=== PATIENT | female | born 1990 | race African-American/Black ===

== ENCOUNTER 2024-11-28 10:39 | Emergency (ER) | payer OTHER, SELFPAY ==
--- NOTE | ~2024-11-28 | US_ITS ---
EXAMINATION: US OBSTETRICAL ULTRASOUND CLINICAL INFORMATION: , spotting and cramping COMPARISON: None available. LMP: 09/24/2024. Gestational age by maternal dates is weeks 2 days. Estimated date of delivery by maternal dates is 525. TECHNIQUE: Transabdominal and transvaginal imaging of pelvis is performed FINDINGS: There is twin intrauterine gestational sac with twin embryo/fetus, and cardiac activity. There is no significant subchorionic hemorrhage or hematoma. Baby A: Baby A lies close to the cervix with a crown-rump length of 0.64 cm corresponding to 6 weeks and 4 days. heart rate is 115 bpm. Baby B: BP lies further away from cervix with a crown-rump length of 0.53 cm and corresponding to 6 weeks 3 days. heart beat measures 1 1 7 bpm. There is visualization dual yolk sac. MATERNAL ADNEXA: The right maternal ovary measures 4.8 x 2.1 x 2.8 cm. There are 2 anechoic corpus luteal cyst measuring 1.8 x 1.4 x 1.6 cm and 1.7 x 1.4 x 1.6 cm. The left maternal ovary is not visualized. There is no significant maternal adnexal mass. No maternal pelvic ascites. US/US OB <= 14 wk fetus add gest IMPRESSION: 1. Twin . Live fetuses and yolk sac seen.. 2. Baby A measures 6 weeks and 4 days with a heart of 115 bpm. 3. Baby B measures 6 weeks and 3 days with a heart rate of 117 bpm. 4. No adnexal mass seen. Electronically signed by: Jitendra Rodriguez MD 11/28/2024 02:36 PM [facility] [place] [place]
--- NOTE | ~2024-11-28 | US_ITS ---
EXAMINATION: US OBSTETRICAL ULTRASOUND CLINICAL INFORMATION: , spotting and cramping COMPARISON: None available. LMP: 09/24/2024. Gestational age by maternal dates is weeks 2 days. Estimated date of delivery by maternal dates is 525. TECHNIQUE: Transabdominal and transvaginal imaging of pelvis is performed FINDINGS: There is twin intrauterine gestational sac with twin embryo/fetus, and cardiac activity. There is no significant subchorionic hemorrhage or hematoma. Baby A: Baby A lies close to the cervix with a crown-rump length of 0.64 cm corresponding to 6 weeks and 4 days. heart rate is 115 bpm. Baby B: BP lies further away from cervix with a crown-rump length of 0.53 cm and corresponding to 6 weeks 3 days. heart beat measures 1 1 7 bpm. There is visualization dual yolk sac. MATERNAL ADNEXA: The right maternal ovary measures 4.8 x 2.1 x 2.8 cm. There are 2 anechoic corpus luteal cyst measuring 1.8 x 1.4 x 1.6 cm and 1.7 x 1.4 x 1.6 cm. The left maternal ovary is not visualized. There is no significant maternal adnexal mass. No maternal pelvic ascites. US/US OB transvaginal IMPRESSION: 1. Twin . Live fetuses and yolk sac seen.. 2. Baby A measures 6 weeks and 4 days with a heart of 115 bpm. 3. Baby B measures 6 weeks and 3 days with a heart rate of 117 bpm. 4. No adnexal mass seen. Electronically signed by: Jitendra Rodriguez MD 11/28/2024 02:36 PM [facility] [place]
--- NOTE | ~2024-11-28 | US_ITS ---
EXAMINATION: US OBSTETRICAL ULTRASOUND CLINICAL INFORMATION: , spotting and cramping COMPARISON: None available. LMP: 09/24/2024. Gestational age by maternal dates is weeks 2 days. Estimated date of delivery by maternal dates is 525. TECHNIQUE: Transabdominal and transvaginal imaging of pelvis is performed FINDINGS: There is twin intrauterine gestational sac with twin embryo/fetus, and cardiac activity. There is no significant subchorionic hemorrhage or hematoma. Baby A: Baby A lies close to the cervix with a crown-rump length of 0.64 cm corresponding to 6 weeks and 4 days. heart rate is 115 bpm. Baby B: BP lies further away from cervix with a crown-rump length of 0.53 cm and corresponding to 6 weeks 3 days. heart beat measures 1 1 7 bpm. There is visualization dual yolk sac. MATERNAL ADNEXA: The right maternal ovary measures 4.8 x 2.1 x 2.8 cm. There are 2 anechoic corpus luteal cyst measuring 1.8 x 1.4 x 1.6 cm and 1.7 x 1.4 x 1.6 cm. The left maternal ovary is not visualized. There is no significant maternal adnexal mass. No maternal pelvic ascites. US/US OB pelvic and transvaginal IMPRESSION: 1. Twin . Live fetuses and yolk sac seen.. 2. Baby A measures 6 weeks and 4 days with a heart of 115 bpm. 3. Baby B measures 6 weeks and 3 days with a heart rate of 117 bpm. 4. No adnexal mass seen. Electronically signed by: Jitendra Rodriguez MD 11/28/2024 02:36 PM [facility]
[2024-11-28 10:56] VITALS: BP 137/80; PULSE 70; RESP 18; TEMP 36.7; O2SAT 100; BMI 26.6
--- NOTE | 2024-11-28 10:58 | ECG_ITS ---
Test Reason : N/V Blood Pressure : / mmHG Vent. Rate : 066 BPM Atrial Rate : 441 BPM P-R Int : 104 ms QRS Dur : 084 ms QT Int : 386 ms P-R-T Axes : 021 045 035 degrees QTc Int : 404 ms Poor data quality Possible Normal sinus rhythm Otherwise normal ECG No previous ECGs available Referred By: Generic ED Physician Electronically Signed By:MERLENE BALTAZAR MD
[2024-11-28 11:14] LABS: MANUAL DIFF FLAG NO
[2024-11-28 11:17] LABS: Basophils Percent Auto 0.3 % (0-2); Eosinophils Percent Auto 0.3 % (0-4); Hematocrit 40.5 % (37.0-47.0); Hemoglobin 14.9 g/dl (12.0-16.0); Imm Gran Abs Auto 0.02 X10*3/uL (0.00-0.03); Imm Gran Pct Auto 0.3 % (0.0-0.4); Lymphocytes Absolute Auto 1.4 X10*3/uL (1.2-4.9); Lymphocytes Percent Auto 17.7 % (20-40); Mean Corpuscular HGB Conc 36.8 g/dl (31.0-35.0); Mean Corpuscular Hemoglobin 31.1 pg (27.0-33.0); Mean Corpuscular Volume 84.6 fL (80.0-98.0); Mean Platelet Volume 8.5 fL (9.4-12.3); Monocytes Absolute Auto 0.5 X10*3/uL (0.1-1.2); Monocytes Percent Auto 6.2 % (2-11); Neutrophils Absolute Auto 5.9 x10*3/uL (2.0-8.3); Neutrophils Percent Auto 75.2 % (45-73); Platelet Count 281 X10*3/uL (160-400); Red Blood Count 4.79 X10*6/uL (4.20-5.50); Red Cell Distribution Width 11.7 % (11.0-16.0); White Blood Count 7.9 X10*3/uL (4.8-10.8)
[2024-11-28 11:37] LABS: Troponin-I High Sensitivity < 2.7 ng/L (<3.5-17.0)
[2024-11-28 11:39] LABS: Alanine Aminotransferase 14 U/L (0-31); Albumin Level 4.7 g/dL (3.5-5.0); Alkaline Phosphatase 47 U/L (39-117); Anion Gap 14 (12-20); Aspartate Amino Transferase 23 U/L (5-31); Bilirubin Total 0.6 mg/dL (0.0-1.0); Blood Urea Nitrogen 11 mg/dL (9-16); Calcium 9.2 mg/dL (8.4-10.2); Carbon Dioxide 27 mmol/L (22-29); Chloride 100 mmol/L (96-108); Creatinine Clr Calc Pharmacy 96.5; Estimated Glomerular Filt Rate > 60; Glucose Random 118 mg/dL (60-115); Magnesium 1.8 mg/dL (1.6-2.6); Potassium 2.9 mmol/L (3.3-5.1); Sodium 138 mmol/L (135-145); Total Protein 7.6 g/dL (6.5-8.0)
--- NOTE | 2024-11-28 11:54 | ED.GENADULT ---
HPI - General Adult General Chief complaint: Nausea/Vomiting/Diarrhea Stated complaint: preg+ , vomiting, bleeding Time Seen by Provider: 11/28/24 11:53 History of Present Illness ED Provider: Ni CASILLAS narrative: The patient is a 34-year-old woman who says that her last menstrual period was in August. She says that she missed a period after that. Several days ago she also developed some nausea. Ultimately she suspected she might be . She took a home test 3 days ago that was positive. She comes to the emergency room today because she has had a great deal of vomiting over the last few days. No fever, sweats, chills. No silvano vaginal bleeding but she has had some vaginal spotting. Patient has 2 children. She also has a history of an ectopic . The patient is uncertain as to whether she plans on continuing this . Related Data Previous Rx's ?Medication ?Instructions ?Recorded metoclopramide HCl 10 mg tablet 10 mg PO Q6H PRN nausea and 11/28/24 vomiting #12 tabs Allergies Allergy/AdvReac Type Severity Reaction Status Date / Time No Known Allergies Allergy Verified 11/28/24 10:57 Review of Systems Review of Systems: Yes all other systems are reviewed and are negative PMFSH Social History Social History Smoked in Last 30 Days: No Substance Use Type: Marijuana Substance Use Frequency: Occasionally Advance Directives: No Do you have a plan to hurt others: No Plan Physical Exam ED Vital Signs: Vital Signs - 24 hr 11/28/24 10:56 11/28/24 14:27 11/28/24 15:43 Temperature 98.0 F 98.0 F Pulse Rate 70 70 70 Respiratory Rate 18 16 16 Blood Pressure 137/80 105/71 105/71 Pulse Oximetry 100 99 99 Oxygen Delivery Method Room Air Room Air Room Air BMI result Body Mass Index 26.6 Const Other: The patient is awake and alert. She seemed nauseated and was vomiting a great deal. HENMT Other: Face was symmetrical. Mucous membranes not obviously dry. Eyes General: appearance normal, both eyes and all related structures Neck Neck: Yes full ROM Resp Effort & Inspection: normal respiratory effort Auscultation: clear to auscultation bilaterally Cardio Rate: regular rate Rhythm: regular rhythm Heart sounds: S1 normal heart sound present and S2 normal heart sound present GI Other: The abdomen was soft and nontender Skin Other: Skin was dry and unremarkable Neuro Other: The patient looks fatigued but otherwise had a normal mental status. Cranial nerves are intact. She moves her extremities normally and appropriately. Extrem Other: No peripheral edema. Medications Administered Discontinued Medications Generic Name Dose Route Start Last Admin Trade Name Chata PRN Reason Stop Dose Admin Diphenhydramine HCl 25 mg 11/28/24 11:58 11/28/24 12:03 Diphenhydramine Hcl 50 Mg/Ml Vial IVPUSH 11/28/24 11:59 25 mg ONCE ONE Administration Lactated Ringer's 1,000 mls @ 999 mls/hr 11/28/24 12:15 11/28/24 14:47 Lr IV 11/28/24 13:15 Infused .Q1H1M J LUIS Infusion Metoclopramide HCl 10 mg 11/28/24 11:58 11/28/24 12:03 Metoclopramide Hcl 10 Mg/2 Ml Vial IVPUSH 11/28/24 11:59 10 mg ONCE ONE Administration Potassium Chloride 20 meq 11/28/24 15:01 11/28/24 15:11 Potassium Chloride Er 20 Meq Tab.Er.Prt PO 11/28/24 15:02 20 meq ONCE ONE Administration Medical Decision Making Medical Decision Making MDM Narrative: The patient is a 34-year-old female who was recently found to be . She presents with a great deal of vomiting. She also has some abdominal cramping and some vaginal spotting. She has not yet had any obstetrical evaluation for this . She is not certain that she wants to continue this to term. The patient was treated symptomatically with metoclopramide, diphenhydramine, and IV fluids. An ultrasound shows a twin intrauterine with 2 fetuses measuring 6.5 weeks. The patient's blood type is A positive. The patient felt much better with treatment. She felt well enough for discharge. [facility] . She is also given the information for [facility]. Lab Data 11/28/24 11:04 11/28/24 11:04 Labs: Lab Results 11/28/24 11/28/24 11/28/24 Range/Units 11:04 13:13 14:11 WBC 7.9 (4.8-10.8) X10*3/uL RBC 4.79 (4.20-5.50) X10*6/uL Hgb 14.9 (12.0-16.0) g/dl Hct 40.5 (37.0-47.0) % MCV 84.6 (80.0-98.0) fL MCH 31.1 (27.0-33.0) pg MCHC 36.8 H (31.0-35.0) g/dl RDW 11.7 (11.0-16.0) % Plt Count 281 (160-400) X10*3/uL MPV 8.5 L (9.4-12.3) fL Immature Gran % (Auto) 0.3 (0.0-0.4) % Neut % (Auto) 75.2 H (45-73) % Lymph % (Auto) 17.7 L (20-40) % [place] % (Auto) 6.2 (2-11) % Eos % (Auto) 0.3 (0-4) % Baso % (Auto) 0.3 (0-2) % Lymph # (Auto) 1.4 (1.2-4.9) X10*3/uL [place] # (Auto) 0.5 (0.1-1.2) X10*3/uL Eos # (Auto) 0.0 (0.0-0.4) X10*3/uL Baso # (Auto) 0.0 (0.0-0.2) X10*3/uL Abs Immat Gran (auto) 0.02 (0.00-0.03) X10*3/uL Absolute Neuts (auto) 5.9 (2.0-8.3) x10*3/uL Absolute Nucleated RBC 0.000 (0.0-0.012) X10*3/uL Nucleated RBC % (auto) 0.0 (0.0-0.2) /100WBC Sodium 138 (135-145) mmol/L Potassium 2.9 L* (3.3-5.1) mmol/L Chloride 100 (96-108) mmol/L Carbon Dioxide 27 (22-29) mmol/L Anion Gap 14 (12-20) BUN 11 (9-16) mg/dL Creatinine 0.79 (0.5-1.4) mg/dL Estim Creat Clear Calc 96.5 Estimated GFR > 60 Random Glucose 118 H (60-115) mg/dL Calcium 9.2 (8.4-10.2) mg/dL Magnesium 1.8 (1.6-2.6) mg/dL Total Bilirubin 0.6 (0.0-1.0) mg/dL AST 23 (5-31) U/L ALT 14 (0-31) U/L Alkaline Phosphatase 47 (39-117) U/L Troponin I High Sens < 2.7 (<3.5-17.0) ng/L Total Protein 7.6 (6.5-8.0) g/dL Albumin 4.7 (3.5-5.0) g/dL Beta HCG, Quant 625250 mIU/mL Urine Color Dark Yellow Urine Appearance Cloudy Urine pH 6.0 (5.0-9.0) Ur Specific [place] >= 1.030 H (1.005-1.025) Urine Protein 30 (1+) H (Neg-Trace) mg/dL Urine Glucose (UA) Negative (Negative) mg/dL Urine Ketones >=160 (Negative) mg/dL Urine Blood Trace H (Negative) Urine Nitrite Negative (Negative) Ur Leukocyte Esterase Negative (Negative) Urine RBC 0-2 (0-2) /HPF Urine WBC 0-5 (0-5) /HPF Ur Squamous Epith Cells 6-10 (0-2) /HPF Urine Bacteria Trace (None Seen) Hyaline Casts 0-2 (0-2) /LPF Influenza Type A (PCR) NEGATIVE (Negative) Influenza Type B (PCR) NEGATIVE (Negative) RSV RNA Qual (PCR) NEGATIVE (Negative) SARS-CoV-2 RNA (RT-PCR) NEGATIVE (Negative) Blood Type A Positive Discharge Plan Discharge Clinical Impression: Hyperemesis gravidarum, First trimester Patient Disposition: Home, Self-Care Instructions: Hyperemesis Gravidarum (ED) Additional Instructions: You seem to be about 6 weeks into this . Your blood type is A positive. I have sent a prescription for the medication metoclopramide (also known as Reglan) to your pharmacy which you may use as needed for nausea. Benadryl can also be helpful although it is sedating. You may purchase this [id number]. [facility] contact [facility] if you think you will be choosing to not continue this . Alternatively you can contact the [facility] [employer] office at this hospital, [facility]. Return to the emergency room if significantly worse. Prescriptions: New metoclopramide HCl 10 mg tablet 10 mg PO Q6H PRN (Reason: nausea and vomiting) Qty: 12 0RF Referrals: [facility] [Provider Group] [facility] [Outside] Interventions: ED Discharge Assessment Last Done: 11/28/24 15:43 Discharge Date/Time: 11/28/24 15:44 Print Language: Turkish
[2024-11-28 12:00] LABS: HCG Quantitative 189365 mIU/mL
[2024-11-28] MEDS: Lactated Ringers 1,000 ML 999 ML IV (12:03)
[2024-11-28] MEDS: Metoclopramide HCl 10 MG/2 ML VIAL IVPUSH (12:03)
[2024-11-28] MEDS: diphenhydrAMINE HCL 50 MG/ML VIAL 25 MG IVPUSH (12:03)
[2024-11-28 12:20] LABS: Influenza A PCR NEGATIVE (Negative); Influenza B PCR NEGATIVE (Negative); Resp Syncy Virus RNA Qual PCR NEGATIVE (Negative); SARS COV2 PCR INHOUSE NEGATIVE (Negative)
[2024-11-28 13:22] LABS: Appearance Urine Cloudy; Color Urine Dark Yellow; Glucose Urine UA Negative (Negative); Leukocyte Esterase Urine Negative (Negative); Nitrite Urine Negative (Negative); Specific Gravity - Urine >= 1.030 (1.005-1.025); UMIC TRIGGER UACC YES; Urine Blood Trace (Negative); Urine Ketones >=160 mg/dL (Negative); Urine Protein 30 (1+) mg/dL (Neg-Trace)
[2024-11-28 13:34] LABS: Bacteria Urine Trace (None Seen); Hyaline Casts Urine 0-2 /LPF (0-2); RBC Urine 0-2 /HPF (0-2); WBC Urine 0-5 /HPF (0-5)
[2024-11-28 14:27] VITALS: BP 105/71; PULSE 70; RESP 16; O2SAT 99
[2024-11-28] MEDS: Potassium Chloride ER 20 MEQ TAB.ER.PRT PO (15:11)
[2024-11-28 15:43] VITALS: BP 105/71; PULSE 70; RESP 16; TEMP 36.7; O2SAT 99
== END 2024-11-28 15:44 | disposition home or self-care (01) ==
PROVIDERS: Emergency Provider Emergency Medicine
DX: O21.0 Mild hyperemesis gravidarum (principal); Z3A.01 Less than 8 weeks gestation of pregnancy; Z03.818 Encounter for observation for suspected exposure to other biological agents ruled out; Z79.899 Other long term (current) drug therapy
CPT/HCPCS: 0241U; 76801; 76802; 76817; 80053; 81001; 83735; 84484; 84702; 85025; 86900; 86901; 93005; 96361; 96374; 96375; 99285; J1200; J2765; J7120

== ENCOUNTER → 2024-11-28 10:58 | Outpatient (BNV) | payer OTHER, SELFPAY | PROVIDERS: Emergency Provider Emergency Medicine; Visit Provider Internal Medicine Cardiovascular Disease | DX: R11.2 Nausea with vomiting, unspecified (principal) | CPT/HCPCS: 93010 ==

== ENCOUNTER → 2024-11-28 13:39 | Outpatient (BNV) | payer OTHER, SELFPAY | PROVIDERS: Emergency Provider Emergency Medicine; Visit Provider Radiology Diagnostic Radiology | DX: O26.851 Spotting complicating pregnancy, first trimester (principal); Z3A.01 Less than 8 weeks gestation of pregnancy | CPT/HCPCS: 76801; 76802; 76817 ==

== ENCOUNTER 2024-11-30 04:07 | Emergency (ER) | payer OTHER, SELFPAY ==
--- NOTE | 2024-11-30 | ECG_ITS ---
Test Reason : CHEST PAIN Blood Pressure : / mmHG Vent. Rate : 055 BPM Atrial Rate : 055 BPM P-R Int : 166 ms QRS Dur : 084 ms QT Int : 452 ms P-R-T Axes : 056 040 040 degrees QTc Int : 432 ms Sinus bradycardia Otherwise normal ECG When compared with ECG of 28-NOV-2024 11:21, No significant change was found Referred By: Generic ED Physician Electronically Signed By:MERLENE BALTAZAR MD
[2024-11-30 04:11] VITALS: BP 114/53; PULSE 55; RESP 20; TEMP 36.4; O2SAT 99; BMI 25.5
[2024-11-30 04:28] LABS: Basophils Percent Auto 0.1 % (0-2); Hematocrit 37.7 % (37.0-47.0); Hemoglobin 14.1 g/dl (12.0-16.0); Imm Gran Abs Auto 0.04 X10*3/uL (0.00-0.03); Imm Gran Pct Auto 0.3 % (0.0-0.4); Lymphocytes Absolute Auto 1.5 X10*3/uL (1.2-4.9); Lymphocytes Percent Auto 10.9 % (20-40); MANUAL DIFF FLAG NO; Mean Corpuscular HGB Conc 37.4 g/dl (31.0-35.0); Mean Corpuscular Hemoglobin 30.9 pg (27.0-33.0); Mean Corpuscular Volume 82.7 fL (80.0-98.0); Mean Platelet Volume 8.5 fL (9.4-12.3); Monocytes Absolute Auto 0.8 X10*3/uL (0.1-1.2); Monocytes Percent Auto 5.7 % (2-11); Neutrophils Absolute Auto 11.4 x10*3/uL (2.0-8.3); Platelet Count 306 X10*3/uL (160-400); Red Blood Count 4.56 X10*6/uL (4.20-5.50); Red Cell Distribution Width 11.9 % (11.0-16.0); White Blood Count 13.7 X10*3/uL (4.8-10.8)
[2024-11-30 04:53] LABS: Alanine Aminotransferase 12 U/L (0-31); Albumin Level 4.7 g/dL (3.5-5.0); Alkaline Phosphatase 47 U/L (39-117); Anion Gap 19 (12-20); Aspartate Amino Transferase 21 U/L (5-31); Bilirubin Total 0.6 mg/dL (0.0-1.0); Blood Urea Nitrogen 12 mg/dL (9-16); Calcium 9.7 mg/dL (8.4-10.2); Carbon Dioxide 24 mmol/L (22-29); Chloride 100 mmol/L (96-108); Creatinine Clr Calc Pharmacy 111.6; Estimated Glomerular Filt Rate > 60; Glucose Random 125 mg/dL (60-115); Lipase 15 U/L (8-78); Sodium 140 mmol/L (135-145); Total Protein 7.5 g/dL (6.5-8.0)
[2024-11-30 04:58] LABS: Troponin-I High Sensitivity < 2.7 ng/L (<3.5-17.0)
--- NOTE | 2024-11-30 05:04 | ED_ITS ---
HPI - Nausea/Vomiting/Diarrhea General Chief complaint: Nausea/Vomiting/Diarrhea Stated complaint: , constant vomiting Time Seen by Provider: 11/30/24 05:03 Source: patient Mode of arrival: ambulatory Limitations: no limitations History of Present Illness ED Provider: HPI Narrative: Patient with twin 6 weeks 5 days comes here for increased vomiting for last 5 days was seen here on 11/28 had ultrasound done which showed twin patient went home on Reglan without much response Related Data Previous Rx's ?Medication ?Instructions ?Recorded metoclopramide HCl 10 mg tablet 10 mg PO Q6H PRN nausea and 11/28/24 vomiting #12 tabs Allergies Allergy/AdvReac Type Severity Reaction Status Date / Time No Known Allergies Allergy Verified 11/30/24 04:13 Review of Systems 2 Review of Systems: Yes all other systems are reviewed and are negative [facility] Social History Social History Smoked in Last 30 Days: No Use of substances other than those prescribed or required for medical reasons: No Substance Use Type: Marijuana Advance Directives: No Advance Directives Information Provided: Yes Do you have a plan to hurt others: No Plan Patient : Yes Physical Exam 2 Vital Signs: Vital Signs: Last Vital Signs Temp 98.5 F 11/30/24 06:32 Pulse 70 11/30/24 06:32 Resp 20 11/30/24 06:32 BP 114/56 L 11/30/24 06:32 Pulse Ox 100 11/30/24 06:32 O2 Del Method Room Air 11/30/24 06:32 BMI result Body Mass Index 25.5 Appearance: Alert. Oriented X3. No acute distress. Eyes: No pallor or icterus ENT: Pharynx normal. Oral Mucosa dry Neck: Normal inspection. Neck supple. CVS: Normal heart rate and rhythm. Pulses normal. Respiratory: No respiratory distress. Equal air entry bilateral, no wheezing/rales/rhonchi Abdomen: Soft and nontender. Bowel sounds are present, no mass palpable, no CVA tenderness Skin: Skin warm and dry. Normal skin color. Normal skin turgor. Extremities: No lower extremity edema. No calf tenderness Neuro: Oriented X 3. No motor deficit. Medications Administered Discontinued Medications Generic Name Dose Route Start Last Admin Trade Name Freq PRN Reason Stop Dose Admin Potassium Chloride 10 meq in 100 mls @ 100 mls/hr 11/30/24 05:15 11/30/24 06:01 Potassium Chloride/H20 IV 11/30/24 07:14 100 mls/hr Q1H J LUIS Administration Sodium Chloride 1,000 mls @ 999 mls/hr 11/30/24 05:06 11/30/24 05:53 Ns IV 11/30/24 06:06 999 mls/hr .Q1H1M ONE Administration Sodium Chloride 1,000 mls @ 999 mls/hr 11/30/24 05:34 11/30/24 05:53 Ns IV 11/30/24 06:34 999 mls/hr .Q1H1M ONE Administration Ondansetron HCl 4 mg 11/30/24 05:07 11/30/24 05:53 Ondansetron Hcl 4 Mg/2 Ml Vial IVPUSH 11/30/24 05:08 4 mg ONCE ONE Administration Medical Decision Making Medical Decision Making [facility] Narrative: Patient with hyperemesis gravidarum with twin with hypo kalemia will potassium and IV fluids UA was negative except for ketones yesterday Patient is signed out to Dr. Juarez pending disposition Lab Data [facility] Lab Attestation statement: I reviewed the patient's lab results. 11/30/24 04:22 11/30/24 04:22 Labs: Lab Results 11/30/24 Range/Units 04:22 WBC 13.7 H (4.8-10.8) X10*3/uL RBC 4.56 (4.20-5.50) X10*6/uL Hgb 14.1 (12.0-16.0) g/dl Hct 37.7 (37.0-47.0) % MCV 82.7 (80.0-98.0) fL MCH 30.9 (27.0-33.0) pg MCHC 37.4 H (31.0-35.0) g/dl RDW 11.9 (11.0-16.0) % Plt Count 306 (160-400) X10*3/uL MPV 8.5 L (9.4-12.3) fL Immature Gran % (Auto) 0.3 (0.0-0.4) % Neut % (Auto) 83.0 H (45-73) % Lymph % (Auto) 10.9 L (20-40) % [place] % (Auto) 5.7 (2-11) % Eos % (Auto) 0.0 (0-4) % Baso % (Auto) 0.1 (0-2) % Lymph # (Auto) 1.5 (1.2-4.9) X10*3/uL [place] # (Auto) 0.8 (0.1-1.2) X10*3/uL Eos # (Auto) 0.0 (0.0-0.4) X10*3/uL Baso # (Auto) 0.0 (0.0-0.2) X10*3/uL Abs Immat Gran (auto) 0.04 H (0.00-0.03) X10*3/uL Absolute Neuts (auto) 11.4 H (2.0-8.3) x10*3/uL Absolute Nucleated RBC 0.000 (0.0-0.012) X10*3/uL Nucleated RBC % (auto) 0.0 (0.0-0.2) /100WBC Sodium 140 (135-145) mmol/L Potassium 2.7 L* (3.3-5.1) mmol/L Chloride 100 (96-108) mmol/L Carbon Dioxide 24 (22-29) mmol/L Anion Gap 19 (12-20) BUN 12 (9-16) mg/dL Creatinine 0.67 (0.5-1.4) mg/dL Estim Creat Clear Calc 111.6 Estimated GFR > 60 Random Glucose 125 H (60-115) mg/dL Calcium 9.7 (8.4-10.2) mg/dL Magnesium 1.8 (1.6-2.6) mg/dL Total Bilirubin 0.6 (0.0-1.0) mg/dL AST 21 (5-31) U/L ALT 12 (0-31) U/L Alkaline Phosphatase 47 (39-117) U/L Troponin I High Sens < 2.7 (<3.5-17.0) ng/L Total Protein 7.5 (6.5-8.0) g/dL Albumin 4.7 (3.5-5.0) g/dL Lipase 15 (8-78) U/L Beta HCG, Quant > [id number] mIU/mL Influenza Type A (PCR) NEGATIVE (Negative) Influenza Type B (PCR) NEGATIVE (Negative) RSV RNA Qual (PCR) NEGATIVE (Negative) SARS-CoV-2 RNA (RT-PCR) NEGATIVE (Negative) Independent Interpretation I performed an independent interpretation of an: EKG Interpretation: Sinus bradycardia heart rate of 55 beats per minute normal interval normal axis no acute STT wave changes no acute ischemia Discharge Plan Discharge Clinical Impression: Hyperemesis gravidarum, Acute hypokalemia Patient Disposition: Still a Patient Prescriptions: No Action metoclopramide HCl 10 mg tablet 10 mg PO Q6H PRN (Reason: nausea and vomiting) Qty: 12 0RF Print Language: Faroese
[2024-11-30 05:05] LABS: Influenza A PCR NEGATIVE (Negative); Influenza B PCR NEGATIVE (Negative); Resp Syncy Virus RNA Qual PCR NEGATIVE (Negative); SARS COV2 PCR INHOUSE NEGATIVE (Negative)
[2024-11-30 05:28] LABS: HCG Quantitative > 225000 mIU/mL
[2024-11-30] MEDS: 0.9 % Sodium Chloride 1,000 ML 999 ML IV ×3 (05:53→09:52)
[2024-11-30] MEDS: ondansetron HCL 4 MG/2 ML VIAL IVPUSH (05:53)
[2024-11-30] MEDS: Potassium Chloride/H20 10 MEQ/100 ML PIGGYBACK 100 MEQ IV ×3 (06:01→09:38)
[2024-11-30 06:19] LABS: Potassium 2.7 mmol/L (3.3-5.1)
[2024-11-30 06:32] VITALS: BP 114/56; PULSE 70; RESP 20; TEMP 36.9; O2SAT 100
[2024-11-30 06:54] LABS: Magnesium 1.8 mg/dL (1.6-2.6)
[2024-11-30] MEDS: Metoclopramide HCl 10 MG/2 ML VIAL IVPUSH (09:18)
[2024-11-30 09:31] VITALS: BP 112/66; PULSE 68; RESP 16; TEMP 36.8; O2SAT 99
[2024-11-30] MEDS: Potassium Chloride Packet 20 MEQ PACKET 40 MEQ PO (10:13)
[2024-11-30 11:09] VITALS: BP 129/89; PULSE 89; RESP 18; TEMP 36.4; O2SAT 99
--- NOTE | 2024-11-30 11:10 | PC.NURSE ---
Pt's IVF's and IV KCL completed; pt tolerating PO intake with no N/V at this time; vss
[2024-11-30 11:37] VITALS: BP 129/89; PULSE 89; RESP 18; TEMP 36.4; O2SAT 99
== END 2024-11-30 11:39 | disposition home or self-care (01) ==
PROVIDERS: Internal Medicine; Emergency Provider Emergency Medicine; PCP Nurse Practitioner
DX: O21.1 Hyperemesis gravidarum with metabolic disturbance (principal); Z3A.01 Less than 8 weeks gestation of pregnancy; Z03.818 Encounter for observation for suspected exposure to other biological agents ruled out
CPT/HCPCS: 0241U; 36415; 80053; 83690; 83735; 84484; 84702; 85025; 93005; 96361; 96365; 96366; 96375; 99285; J2405; J2765; J3480

== ENCOUNTER → 2024-11-30 04:18 | Outpatient (BNV) | payer OTHER, SELFPAY | PROVIDERS: Emergency Provider Emergency Medicine; PCP Nurse Practitioner; Visit Provider Internal Medicine Cardiovascular Disease | DX: R07.9 Chest pain, unspecified (principal) | CPT/HCPCS: 93010 ==

== ENCOUNTER 2024-11-30 20:27 | Emergency (ER) | payer OTHER, SELFPAY ==
[2024-11-30 20:29] VITALS: BP 136/65; PULSE 60; RESP 18; TEMP 36.3; O2SAT 100; BMI 26.6
--- NOTE | 2024-11-30 20:30 | ED.NAVMDI ---
HPI - Nausea/Vomiting/Diarrhea General Chief complaint: General Medical Stated complaint: vomiting Time Seen by Provider: 11/30/24 22:26 History of Present Illness HPI Narrative: Patient is a 34-year-old female had an ultrasound done earlier yesterday it was positive for an intrauterine twin approximately 6 weeks old. Positive heart tone. Patient went home still complaining of nausea. Feels the symptoms got worse. Presented to the ED. no fever no chills. No vaginal bleeding. Patient from home. Related Data Previous Rx's ?Medication ?Instructions ?Recorded metoclopramide HCl 10 mg tablet 10 mg PO Q6H PRN nausea and 11/28/24 vomiting #12 tabs Allergies Allergy/AdvReac Type Severity Reaction Status Date / Time No Known Allergies Allergy Verified 11/30/24 20:31 Review of Systems Review of Systems: Positive nausea vomiting Yes all other systems are reviewed and are negative [facility] Past Medical History Attestation statement: The following information was validated with the patient. Social History Social History Smoked in Last 30 Days: No Use of substances other than those prescribed or required for medical reasons: No Substance Use Type: Marijuana Advance Directives: No Advance Directives Information Provided: No Patient : Yes Physical Exam Vital Signs: Vital Signs: Last Vital Signs Temp 98.9 F 11/30/24 22:39 Pulse 58 11/30/24 22:39 Resp 20 11/30/24 22:39 BP 136/69 11/30/24 22:39 Pulse Ox 100 11/30/24 22:39 O2 Del Method Room Air 11/30/24 22:39 BMI result Body Mass Index 26.6 Appearance: Alert. Oriented X3. No acute distress. Eyes: Pupils equal, round and reactive to light. ENT: Pharynx normal. Neck: Normal inspection. Neck supple. No lymph nodes noted. No crepitus CVS: Normal heart rate and rhythm. Pulses normal. Normal S1 and S2 Respiratory: No respiratory distress. Breath sounds normal. No Wheezing. No rales Abdomen: Soft and nontender. No rigidity. No distention. good BS x4 Skin: Skin warm and dry. Normal skin color. Normal skin turgor. Extremities: No lower extremity edema. Neurovascular intact to all extremities. No Lacerations. No Rash Neuro: Oriented X 3. No motor deficit. No sensory deficit. Moving all extermities. No slurred speech Course Course Course Narrative: This is a Rapid Medical Exam performed in triage by Sruthi Fernandez PA-C. Full HPI, ROS and PE to be performed by primary ED provider. 34yo F @6 weeks gestation w/twin presenting to the ED c/o sore throat / pain with swallowing, nausea, vomiting w/inability to tolerate PO & vaginal bleeding x days. denies vaginal d/c. currently has no OB, states she plans to [facility]. Patient was evaluated in our ED on 11/28 as well as earlier today PE: uncomfortable, in wheelchair Plan: Labs, UA Medications Administered Discontinued Medications Generic Name Dose Route Start Last Admin Trade Name Freq PRN Reason Stop Dose Admin Al Hydroxide/Mg Hydroxide 30 ml 11/30/24 23:08 11/30/24 23:37 Magnesium Hydrox/Alum Hydrox 30 Ml Oral.Susp PO 11/30/24 23:09 30 ml ONCE ONE Administration Sodium Chloride 1,000 mls @ 999 mls/hr 11/30/24 23:15 11/30/24 23:37 Ns IV 12/01/24 00:15 999 mls/hr .Q1H1M J LUIS Administration Sodium Chloride 1,000 mls @ 999 mls/hr 11/30/24 23:15 11/30/24 23:37 Ns IV 12/01/24 00:15 999 mls/hr .Q1H1M J LUIS Administration Ondansetron HCl 4 mg 11/30/24 23:07 11/30/24 23:37 Ondansetron Hcl 4 Mg/2 Ml Vial IVPUSH 11/30/24 23:08 4 mg ONCE ONE Administration Medical Decision Making Medical Decision Making [facility] Narrative: Patient given IV fluids in the emergency department. Risk and benefit of medication was discussed. Risk of dehydration also mention. Patient agrees to taking some nausea medication. A dose of Zofran was given. After IV fluid Zofran symptom improved. Patient was able to tolerate fluids. Previous ultrasound report was reviewed. It showed an intrauterine twin . She is currently in stable condition. Will discharge home Differential Diagnosis Differential Diagnoses: The differential diagnosis associated with the presentation includes Hyperemesis gravidarum, obstruction Admission/Observation Consideration of admission/observation: Escalation of care including admission/observation considered Lab Data [facility] Lab Attestation statement: I reviewed the patient's lab results. 11/30/24 20:48 11/30/24 20:48 Labs: Lab Results 11/30/24 Range/Units 20:48 WBC 10.3 (4.8-10.8) X10*3/uL RBC 4.01 L (4.20-5.50) X10*6/uL Hgb 12.3 (12.0-16.0) g/dl Hct 33.5 L (37.0-47.0) % MCV 83.5 (80.0-98.0) fL MCH 30.7 (27.0-33.0) pg MCHC 36.7 H (31.0-35.0) g/dl RDW 11.9 (11.0-16.0) % Plt Count 252 (160-400) X10*3/uL MPV 8.6 L (9.4-12.3) fL Immature Gran % (Auto) 0.3 (0.0-0.4) % Neut % (Auto) 77.0 H (45-73) % Lymph % (Auto) 16.2 L (20-40) % Ward % (Auto) 6.1 (2-11) % Eos % (Auto) 0.2 (0-4) % Baso % (Auto) 0.2 (0-2) % Lymph # (Auto) 1.7 (1.2-4.9) X10*3/uL Ward # (Auto) 0.6 (0.1-1.2) X10*3/uL Eos # (Auto) 0.0 (0.0-0.4) X10*3/uL Baso # (Auto) 0.0 (0.0-0.2) X10*3/uL Abs Immat Gran (auto) 0.03 (0.00-0.03) X10*3/uL Absolute Neuts (auto) 7.9 (2.0-8.3) x10*3/uL Absolute Nucleated RBC 0.000 (0.0-0.012) X10*3/uL Nucleated RBC % (auto) 0.0 (0.0-0.2) /100WBC Sodium 138 (135-145) mmol/L Potassium 3.0 L (3.3-5.1) mmol/L Chloride 104 (96-108) mmol/L Carbon Dioxide 24 (22-29) mmol/L Anion Gap 13 (12-20) BUN 9 (9-16) mg/dL Creatinine 0.57 (0.5-1.4) mg/dL Estim Creat Clear Calc 133.8 Estimated GFR > 60 Random Glucose 91 (60-115) mg/dL Calcium 8.5 D (8.4-10.2) mg/dL Magnesium 1.8 (1.6-2.6) mg/dL Total Bilirubin 0.8 (0.0-1.0) mg/dL Direct Bilirubin 0.3 (0.0-0.5) mg/dL AST 34 H (5-31) U/L ALT 19 (0-31) U/L Alkaline Phosphatase 39 (39-117) U/L Total Protein 6.2 L (6.5-8.0) g/dL Albumin 3.9 (3.5-5.0) g/dL Lipase 35 (8-78) U/L Beta HCG, Quant > 613490 mIU/mL S. pyogenes GrpA ABDI Negative (Negative) External Record Review Ultrasound report from earlier repeat Chronic Conditions with twins Social Determinants Patient?s care significantly limited by Social Determinants of Health including: Problems related to primary support group Discharge Plan Discharge Clinical Impression: Hyperemesis gravidarum Patient Disposition: Home, Self-Care Instructions: Hyperemesis Gravidarum (ED) Prescriptions: No Action metoclopramide HCl 10 mg tablet 10 mg PO Q6H PRN (Reason: nausea and vomiting) Qty: 12 0RF Referrals: Darwin Abrams MD [Physician] - 12/03/24 Print Language: Azeri
[2024-11-30 20:52] LABS: MANUAL DIFF FLAG NO
[2024-11-30 21:00] LABS: IDNOW Serial# 58CA691E
[2024-11-30 21:01] LABS: Strep A Nucleic Acid Negative (Negative)
[2024-11-30 21:14] LABS: Alanine Aminotransferase 19 U/L (0-31); Albumin Level 3.9 g/dL (3.5-5.0); Alkaline Phosphatase 39 U/L (39-117); Anion Gap 13 (12-20); Aspartate Amino Transferase 34 U/L (5-31); Bilirubin Direct 0.3 mg/dL (0.0-0.5); Bilirubin Total 0.8 mg/dL (0.0-1.0); Blood Urea Nitrogen 9 mg/dL (9-16); Calcium 8.5 mg/dL (8.4-10.2); Carbon Dioxide 24 mmol/L (22-29); Chloride 104 mmol/L (96-108); Creatinine Clr Calc Pharmacy 133.8; Estimated Glomerular Filt Rate > 60; Glucose Random 91 mg/dL (60-115); Lipase 35 U/L (8-78); Magnesium 1.8 mg/dL (1.6-2.6); Sodium 138 mmol/L (135-145); Total Protein 6.2 g/dL (6.5-8.0)
[2024-11-30 21:20] LABS: Basophils Percent Auto 0.2 % (0-2); Eosinophils Percent Auto 0.2 % (0-4); Hematocrit 33.5 % (37.0-47.0); Hemoglobin 12.3 g/dl (12.0-16.0); Imm Gran Abs Auto 0.03 X10*3/uL (0.00-0.03); Imm Gran Pct Auto 0.3 % (0.0-0.4); Lymphocytes Absolute Auto 1.7 X10*3/uL (1.2-4.9); Lymphocytes Percent Auto 16.2 % (20-40); Mean Corpuscular HGB Conc 36.7 g/dl (31.0-35.0); Mean Corpuscular Hemoglobin 30.7 pg (27.0-33.0); Mean Corpuscular Volume 83.5 fL (80.0-98.0); Mean Platelet Volume 8.6 fL (9.4-12.3); Monocytes Absolute Auto 0.6 X10*3/uL (0.1-1.2); Monocytes Percent Auto 6.1 % (2-11); Neutrophils Absolute Auto 7.9 x10*3/uL (2.0-8.3); Platelet Count 252 X10*3/uL (160-400); Red Blood Count 4.01 X10*6/uL (4.20-5.50); Red Cell Distribution Width 11.9 % (11.0-16.0); White Blood Count 10.3 X10*3/uL (4.8-10.8)
[2024-11-30 21:42] LABS: HCG Quantitative > 225000 mIU/mL
[2024-11-30 22:39] VITALS: BP 136/69; PULSE 58; RESP 20; TEMP 37.2; O2SAT 100
[2024-11-30] MEDS: ondansetron HCL 4 MG/2 ML VIAL IVPUSH (23:37)
[2024-11-30] MEDS: Magnesium Hydrox/Alum Hydrox 30 ML ORAL.SUSP PO (23:37)
[2024-11-30] MEDS: 0.9 % Sodium Chloride 1,000 ML 999 ML IV ×2 (23:37)
[2024-12-01 01:13] VITALS: BP 143/93; PULSE 59; RESP 18; TEMP 36.5; O2SAT 100
[2024-12-01] MEDS: Metoclopramide HCl 10 MG/2 ML VIAL IVPUSH (01:27)
[2024-12-01 02:16] VITALS: BP 143/93; PULSE 59; RESP 18; TEMP 36.5; O2SAT 100
== END 2024-12-01 02:17 | disposition home or self-care (01) ==
PROVIDERS: Physician Assistant; Emergency Provider Emergency Medicine Emergency Medical Services; PCP Nurse Practitioner
DX: O21.0 Mild hyperemesis gravidarum (principal); Z3A.01 Less than 8 weeks gestation of pregnancy
CPT/HCPCS: 80048; 80076; 83690; 83735; 84702; 85025; 87651; 96361; 96374; 96375; 99284; J2405; J2765